=== PATIENT | female | born 1975 | race Caucasian/White ===

== ENCOUNTER 2017-12-04 20:09 | Emergency (ER) | payer OTHER ==
[2017-12-04 20:31] VITALS: BP 129/80
--- NOTE | 2017-12-04 21:10 | UC ---
Skin Complaint HPI - HPI Summary HPI Summary: 42-year-old female presents with onset of pruritic, diffuse, papular lesions to her bilateral arms, anterior trunk, and groin area upon waking this morning. No one else in the household with symptoms. She denies any fever, chills, swelling of lips, tongue, throat, difficulty breathing, changes in diet, medication, soaps, detergents, cosmetics, lotions, known insect bites, or contact with potential environmental irritants. - History of Current Complaint Chief Complaint: UCSkin Time Seen by Provider: 12/04/17 20:48 Stated Complaint: SKIN COMPLAINT Hx Obtained From: Patient Hx Last Menstrual Period: 11/21/17 Onset/Duration: Sudden Onset Skin Exposure Onset/Duration: Hours Ago Onset Severity: Mild Current Severity: Mild Pain Intensity: 0 Location: Diffuse Character: Pruritus Aggravating Factor(s): Nothing Alleviating Factor(s): Nothing Associated Signs & Symptoms: Positive: Negative - Allergy/Home Medications Allergies/Adverse Reactions: Allergies Allergy/AdvReac Type Severity Reaction Status Date / Time codeine Allergy Intermediate GI Upset Verified 12/04/17 20:25 Review of Systems Constitutional: Negative Skin: Rash - See history of present illness ENT: Negative Respiratory: Negative Is Patient Immunocompromised?: No All Other Systems Reviewed And Are Negative: Yes PMH/Surg Hx/FS Hx/Imm Hx Previously Healthy: Yes - Surgical History Surgical History: None - Family History Known Family History: Positive: None - noncontributory - Social History Occupation: Employed Full-time Lives: With Family Alcohol Use: Occasionally Substance Use Type: None Smoking Status (MU): Never Smoked Tobacco - Immunization History Most Recent Tetanus Shot: unsure Physical Exam Triage Information Reviewed: Yes Appearance: Well-Appearing, No Pain Distress, Well-Nourished Vital Signs: Initial Vital Signs Temp 98.6 F 12/04/17 20:25 Pulse 67 12/04/17 20:25 Resp 16 12/04/17 20:25 BP 129/80 12/04/17 20:25 Pulse Ox 100 12/04/17 20:25 Vital Signs Reviewed: Yes Eyes: Positive: Conjunctiva Clear ENT: Positive: Normal ENT inspection, Other - Airway patent Respiratory: Positive: No respiratory distress Skin: Positive: rashes - Patient with multiple discrete papular, pruritic lesions all less than 0.5 cm in diameter to bilateral arms, anterior trunk especially along the bra line and abdomen, and a few in the groin area. Course/Dx - Course Course Of Treatment: 42-year-old female with onset of multiple discrete, pruritic papular lesions to bilateral arms, anterior trunk, and groin area with no identifiable cause. She is nontoxic in appearance. We'll treat conservatively using an [id number]-[id number] antihistamine and topical steroid cream. She is to follow up with her primary care provider if no improvement. Seek immediate medical attention for any worsening of symptoms. - Diagnoses Provider Diagnoses: Dermatitis Discharge - Sign-Out/Discharge Documenting (check all that apply): Patient Departure - Discharge Plan Condition: Stable Disposition: HOME Prescriptions: Triamcinolone 0.1% CREAM(NF) [Kenalog Cream 0.1%(NF)] 1 applic TOPICAL BID #1 tube Patient Education Materials: Dermatitis (ED) Referrals: June Brambila MD [Primary Care Provider] - If Needed () Additional Instructions: Take cjqu-bue-olapqnq diphenhydramine (Benadryl) according to directions as needed for itching. Be aware that this may cause drowsiness. He may also try an srzl-mpr-siymyvg nondrowsy antihistamine such as Zyrtec, Claritin, for [place] according to directions. He may use the generic forms of these medications. Use triamcinolone cream cream to help with the itching. Apply a thin layer to the affected areas twice a day for up to 2 weeks. He may also try using an over -the-counter hydrocortisone cream as directed. Follow-up with your primary care provider if no improvement. Seek immediate medical attention for any new or worsening of symptoms. - Billing Disposition and Condition Condition: STABLE Disposition: Home
== END 2017-12-04 21:17 | disposition home or self-care (01) ==
LOC: UCCORT 20:09
DX: L30.9 Dermatitis, unspecified (principal); Z88.5 Allergy status to narcotic agent
CPT/HCPCS: 99212; G0463